=== PATIENT | male | born 1975 | race African-American/Black ===

== ENCOUNTER 2019-09-14 22:04 | Emergency (ER) | payer SELFPAY ==
[~2019-09-14] VITALS: Ht 185.4 cm; Wt 114.0 kg
--- NOTE | 2019-09-14 22:31 | PHYS DOC ---
General Adult EDM: Chief Complaint: NEAR SYNCOPE HPI: HPI: Patient is a 44 year old male who presents with complaint of near syncopal event. Patient indicates that he was at work and had gone to the bathroom when he became lightheaded and felt like he was going to pass out. Patient denies having any chest pain. He denies any nausea or vomiting. He does indicate that he did have one episode of vomiting 2 days ago but nothing today. He denies any fever. [] Review of Systems: Review of Systems: Constitutional: Denies fever or chills. [] HENT: Denies nasal congestion or sore throat. [] Respiratory: Denies cough or shortness of breath. [] Cardiovascular: Denies chest pain or edema. [] GI: Denies abdominal pain, nausea, vomiting or diarrhea. [] Neurologic: Denies headache, focal weakness or sensory changes. [] A full 10 point review of systems has been reviewed and is otherwise negative. Heart Score: Risk Factors: Risk Factors: DM, Current or recent (<one month) smoker, HTN, HLP, family history of CAD, obesity. Risk Scores: Score 0 - 3: 2.5% MACE over next 6 weeks - Discharge Home Score 4 - 6: 20.3% MACE over next 6 weeks - Admit for Clinical Observation Score 7 - 10: 72.7% MACE over next 6 weeks - Early Invasive Strategies Current Medications: Current Medications Medications (Trade) Dose Ordered Sig/Italo Start Time Stop Time Status Last Admin Dose Admin Sodium Chloride 1,000 ml @ 1,000 mls/hr 1X ONCE 09/14/19 22:30 09/14/19 23:29 UNV Physical Exam: PE: Constitutional: Well developed, well nourished, no acute distress, non-toxic appearance. [] HENT: Normocephalic, atraumatic, bilateral external ears normal, oropharynx moist, no oral exudates, nose normal. [] Eyes: PERRLA, EOMI, conjunctiva normal, no discharge. [] Neck: Normal range of motion, no tenderness, supple, no stridor. [] Cardiovascular: Regular rate and rhythm [] Lungs & Thorax: Bilateral breath sounds clear to auscultation [] Abdomen: Bowel sounds normal, soft, no tenderness. [] Skin: Warm, dry, no erythema, no rash. [] Extremities: No tenderness, no cyanosis, no clubbing, ROM intact. [] Neurologic: Alert and oriented X 3, no focal deficits noted. [] EKG: EKG: [] Radiology/Procedures: Radiology/Procedures: [] Course & Med Decision Making: Course & Med Decision Making Pertinent Labs and Imaging studies reviewed. (See chart for details) [] Dragon Disclaimer: Dragon Disclaimer: This electronic medical record was generated, in whole or in part, using a voice recognition dictation system. Departure Departure Impression: Primary Impression: Near syncope Disposition: 01 HOME, SELF-CARE Condition: STABLE Patient Instructions: Form - Return To Work, Near-Syncope SUSAN CARRASQUILLO Jr. DO September 14, 2019 22:31
[2019-09-14 23:00] LABS: BASO % 1 % (0-3); EOS # 0.1 x10^3/uL (0.0-0.7); EOS % 2 % (0-3); HEMATOCRIT 44.4 % (39.0-53.0); HEMOGLOBIN 15.3 g/dL (13.0-17.5); LYMPH # 2.3 x10^3/uL (1.0-4.8); LYMPH % 30 % (24-48); MEAN CORPUSCULAR HEMOGLOBIN 35 pg (25-35); MEAN CORPUSCULAR HGB CONC 34 g/dL (31-37); MEAN CORPUSCULAR VOLUME 102 fL (79-100); MONO # 0.7 x10^3/uL (0.0-1.1); MONO % 9 % (0-9); NEUT # 4.4 x10^3/uL (1.8-7.7); NEUT % 58 % (31-73); PLATELET COUNT 340 x10^3/uL (140-400); RED BLOOD COUNT 4.35 x10^6/uL (4.30-5.70); RED CELL DISTRIBUTION WIDTH 17.1 % (11.5-14.5); WHITE BLOOD COUNT 7.6 x10^3/uL (4.0-11.0)
[2019-09-14] MEDS ORDERED: IV NORMAL SALINE 1000ML BAG 1,000 ML IV ONE (23:00)
[2019-09-14 23:09] LABS: CALCIUM 8.6 mg/dL (8.5-10.1); GFR 97.3; POTASSIUM 3.8 mmol/L (3.5-5.1)
[2019-09-14 23:12] VITALS: BP 133/83
[2019-09-14 23:14] LABS: ALBUMIN 3.8 g/dL (3.4-5.0); ALBUMIN/GLOBULIN RATIO 0.9 (1.0-1.7); MAGNESIUM 2.1 mg/dL (1.8-2.4); TOTAL BILIRUBIN 0.1 mg/dL (0.2-1.0); TOTAL PROTEIN 8.1 g/dL (6.4-8.2)
--- NOTE | 2019-09-15 06:41 | EKG ---
[facility] [address] [place] [address] Test Date: 2019-09-14 Test Time: 22:40:44 Pat Name: ARTEMIO COLE Department: Room: Gender: M Social Services Coordinator: : 1975 Requested By: SUSAN CARRASQUILLO Order Number: [id number] Reading MD: Mikey Packer Measurements Intervals [place] Rate: 82 P: 46 AR: 174 QRS: 12 QRSD: 76 T: 27 QT: 348 QTc: 409 Interpretive Statements SINUS RHYTHM NORMAL ECG RI6.01 No previous ECG available for comparison Electronically Signed On 09-15-2019 8:02:35 CDT by Mikey Packer
== END 2019-09-14 23:37 | disposition home or self-care (01) ==
LOC: ER 22:04
DX: R55 Syncope and collapse (principal); R42 Dizziness and giddiness; R11.10 Vomiting, unspecified
CPT/HCPCS: 36415; 80053; 83735; 85025; 93005; 96360; 99284; J7030

== ENCOUNTER → 2019-10-26 | Emergency (ER) | payer SELFPAY | LOC: ER 15:15 | DX: M79.601 Pain in right arm (principal); Z53.21 Procedure and treatment not carried out due to patient leaving prior to being seen by health care provider ==

== ENCOUNTER 2020-02-22 21:16 | Emergency (ER) | payer SELFPAY ==
[~2020-02-22] VITALS: Ht 185.4 cm; Wt 114.6 kg
--- NOTE | 2020-02-22 21:54 | PHYS DOC ---
Past Medical History Past Medical History: No Pertinent History Past Surgical History: No Surgical History Smoking Status: Current Every Day Smoker Alcohol Use: None General Adult EDM: Chief Complaint: THUMB HPI: HPI: Patient is a 44 year old male who is currently on no medications presents with a chief complaint of left thumb pain. Patient states he has had pain and swelling over the last 1 week has increased. Patient denies any known injuries. He states on he noticed a white fluctuant area on the palmar surface over the MCP. States he used a nail clipper and attmpted a self I/D with a little amount of fluid drainage. On exam patient has swelling primarily over his left Distal and Proximal Ph alanx. There is also Mild swelling along thenar eminence. Patient states discomfort from thumb radiated to his proximal forearm. There is pain with passive ROM of left thumb. No history of fever or chills. Patient is right hand dominant. Review of Systems: Review of Systems: Constitutional: Denies fever or chills. [] Eyes: Denies change in visual acuity. [] HENT: Denies nasal congestion or sore throat. [] Respiratory: Denies cough or shortness of breath. [] Cardiovascular: Denies chest pain or edema. [] GI: Denies abdominal pain, nausea, vomiting, bloody stools or diarrhea. [] : Denies dysuria. [] Musculoskeletal: Denies back pain or joint pain. [positive thumb pain positive hand pain] Integument: Denies rash. [] Neurologic: Denies headache, focal weakness or sensory changes. [] Endocrine: Denies polyuria or polydipsia. [] Lymphatic: Denies swollen glands. [] Psychiatric: Denies depression or anxiety. [] Heart Score: Risk Factors: Risk Factors: DM, Current or recent (<one month) smoker, HTN, HLP, family history of CAD, obesity. Risk Scores: Score 0 - 3: 2.5% MACE over next 6 weeks - Discharge Home Score 4 - 6: 20.3% MACE over next 6 weeks - Admit for Clinical Observation Score 7 - 10: 72.7% MACE over next 6 weeks - Early Invasive Strategies Allergies: Allergies: Allergies Coded Allergies Type Severity Reaction Last Updated Verified No Known Drug Allergies 09/14/19 No Physical Exam: PE: Constitutional: Well developed, well nourished, no acute distress, non-toxic appearance. [] HENT: Normocephalic, atraumatic, bilateral external ears normal, oropharynx moist, no oral exudates, nose normal. [] Eyes: PERRLA, EOMI, conjunctiva normal, no discharge. [] Neck: Normal range of motion, no tenderness, supple, no stridor. [] Cardiovascular:Heart rate regular rhythm, no murmur [] Lungs & Thorax: Bilateral breath sounds clear to auscultation [] Abdomen: Bowel sounds normal, soft, no tenderness, no masses, no pulsatile masses. [] Skin: Warm, dry, no erythema, no rash. [] Back: No tenderness, no CVA tenderness. [] Extremities: No tenderness, no cyanosis, no clubbing, ROM intact, no edema. [] Neurologic: Alert and oriented X 3, normal motor function, normal sensory function, no focal deficits noted. [] Psychologic: Affect normal, judgement normal, mood normal. [] Left hand-- Swelling over left thumb-- primarily prox and distal phalanx. Pain with flextion of right thumb, Tenderness along flexor surface of the thumb, Swelling along thenar eminence, Thumb is NVI, CR<2 seconds. Current Patient Data: Vital Signs: Vital Signs Date Time Temp Pulse Resp B/P (MAP) Pulse Ox O2 Delivery O2 Flow Rate FiO2 02/22/20 21:20 97.9 98 16 173/94 (120) 100 Room Air 97.9 EKG: EKG: [] Radiology/Procedures: Radiology/Procedures: [] Impression: NDICATION: Reason: thumb left / Spl. Instructions: / History: COMPARISON: None. IMPRESSION: Left first digit of hand: 3 views obtained. Small ossific density is seen adjacent to the interphalangeal joint which has a chronic appearance. No acute fracture or dislocation is seen. Electronically signed by: Prabhjot Alford MD (02/22/2020 11:22 PM) [id number] Course & Med Decision Making: Course & Med Decision Making Pertinent Labs and Imaging studies reviewed. (See chart for details) [] Procedure-- Digital block left thumb. INjuection site was cleaned with alcohol wipe Approx 10cc total lidocaine 1% used for digital block Once successful anesthesia was achieved area with draped with sterile towels and cleaned with Betadine. overlying PIP on raygoza surface area of white pus fluid visualized- 11 blade used to make a 1cm laceration over fluctuant area. Blood and pus expressed. Area was probed and 10cc NS flushed into into incision. Incision left open. Dressed with 4x4 Patient tolerated procedure. Treatment/work up Xray was ordered and not FB identified. CBC/cmp obtainted. I/D Treatment with Zosyn and Vancomycin. I did not feel comfortable extending my incision longer or cutting deeper into patients thumb. Fluid collections feels deeper. My clinical concern is flexor tenosynovitis. No hand surgeon or plastic surgery available at [facility]. I discussed patient with orthopedics convention planner Dr Rodriguez--- He states he does not operate on hands requested patient be transferred to facility that has hand surgeon. I discussed with patient transfer to another facility-- Recommended [facility] and [facility]. Patient states he lives next to [facility] and would like to be treated there. Discussed patient with Dina at [facility] transfer line. She states [facility] is on high volume and no beds available-- likely that patient would not be able to be accepted at [facility] until unknown time tomorrow. Advised my clinical concern for flexor tenosynovitis-- and it was my impression that they are usually surgical emergencies. I was recommended to seek another accepting facility. I discussed with patient the possibility of another facility --- patient again pefers [facility]. Dina from [facility]-- Discussed patient with Dr Borges. I was advised that could be admitted to hospitalist here at [place] and that most cases are not surgical. Due to the lack of hand or plastics surgery I do not feel it is appropriate to admit patient here at [facility] to the hospitalist without surgical support. I was advised that patient could be trasnfered to [facility] ER for evaluation. Was advised by [facility] transfer team that the Accepting docot is Dr Borges--- (I did not speak to him directly). Discussed transfer to [facility] ER with patient-- he advises that he would like to go by private vehicle and declining ambulance transfer. Patient discharged/transfer to [facility] ER. Yessica Disclaimer: Yessica Disclaimer: This electronic medical record was generated, in whole or in part, using a voice recognition dictation system. Departure Departure Impression: Primary Impression: Thumb pain Additional Impressions: Abscess of thumb Flexor tenosynovitis of thumb Disposition: 02 DC/TRF OTHER SHORT TERM HOS ([facility] ER) Condition: STABLE Referrals: NO PCP (PCP) Patient Instructions: Abscess Additional Instructions: CLINICAL CONCERN for Flexor Tenosynovitis of Left THUMB Patient to be transfered to [facility] Patient advised to be transfered to ER Patient declining EMS Transfer and wants to go POV. KATIE GRACIA I DO Feb 22, 2020 21:54
[2020-02-22] MEDS ORDERED: LIDOCAINE 1% PF 5 ML VIAL. INJ ONE (22:00)
[2020-02-22] MEDS ORDERED: PIP/TAZO PER PHARMACY MC PRN (23:00)
[2020-02-22] MEDS ORDERED: VANCOMYCIN PER PHARMACY MC PRN (23:00)
[2020-02-22 23:07] LABS: BASO % 0 % (0-3); EOS # 0.2 x10^3/uL (0.0-0.7); EOS % 2 % (0-3); HEMATOCRIT 41.1 % (39.0-53.0); HEMOGLOBIN 14.6 g/dL (13.0-17.5); LYMPH # 3.4 x10^3/uL (1.0-4.8); LYMPH % 27 % (24-48); MEAN CORPUSCULAR HEMOGLOBIN 42 pg (25-35); MEAN CORPUSCULAR HGB CONC 36 g/dL (31-37); MEAN CORPUSCULAR VOLUME 117 fL (79-100); MONO # 0.4 x10^3/uL (0.0-1.1); MONO % 3 % (0-9); NEUT # 8.7 x10^3/uL (1.8-7.7); NEUT % 68 % (31-73); PLATELET COUNT 342 x10^3/uL (140-400); RED BLOOD COUNT 3.52 x10^6/uL (4.30-5.70); RED CELL DISTRIBUTION WIDTH 18.3 % (11.5-14.5); WHITE BLOOD COUNT 12.8 x10^3/uL (4.0-11.0)
[2020-02-22] MEDS ORDERED: PIPERACILLIN/TAZOBACTAM 3.375 GM in IV NORMAL SALINE 50ML 50 ML IV ONE (23:15)
[2020-02-22 23:17] LABS: CALCIUM 9.2 mg/dL (8.5-10.1); CREATININE 1.1 mg/dL (0.7-1.3); GFR 87.2
[2020-02-22 23:21] LABS: ANISOCYTOSIS SLIGHT; PLT ESTIMATE ADEQUATE (ADEQUATE); POLYCHROMASIA SLIGHT
[2020-02-22 23:23] LABS: ALBUMIN 4.4 g/dL (3.4-5.0); TOTAL BILIRUBIN 0.3 mg/dL (0.2-1.0); TOTAL PROTEIN 8.7 g/dL (6.4-8.2)
--- NOTE | 2020-02-22 23:24 | RAD ---
INDICATION: Reason: thumb left / Spl. Instructions: / History: COMPARISON: None. IMPRESSION: Left first digit of hand: 3 views obtained. Small ossific density is seen adjacent to the interphalangeal joint which has a chronic appearance. No acute fracture or dislocation is seen. Electronically signed by: Prabhjot Alford MD (02/22/2020 11:22 PM) [id number]
[2020-02-22] MEDS ORDERED: VANCOMYCIN 2 GM in IV NORMAL SALINE 500ML BAG 500 ML IV ONE (23:30)
[2020-02-23 01:00] VITALS: BP 140/82
== END 2020-02-23 01:41 | disposition short-term general hospital (02) ==
LOC: ER 21:16
DX: L02.512 Cutaneous abscess of left hand (principal); M65.842 Other synovitis and tenosynovitis, left hand; F17.200 Nicotine dependence, unspecified, uncomplicated
CPT/HCPCS: 10060; 36415; 73140; 80053; 85025; 96365; 96366; 96368; 99285; J2543; J3370; J3490; J7040

== ENCOUNTER → 2021-05-03 | Outpatient (CLI) | payer OTHER ==
--- NOTE | 2021-05-03 13:01 | RAD ---
2 views lumbar spine without comparison for low back pain. FINDINGS: Mild straightening of the normal lumbar lordosis with no fracture or acute osseous abnormal ity identified. Mild multilevel facet arthrosis in the lower levels particularly. Mild aortic atheros clerosis. Intervertebral disc spaces appear well-preserved. IMPRESSION: 1. No acute osseous or alignment abnormality of lumbar spine. Electronically signed by: Chu Aldrich MD (05/03/2021 12:59 PM) [id number]
== END ==
LOC: RAD 08:40
PROVIDERS: ATTEND Anesthesiology Pain Medicine
DX: Z02.71 Encounter for disability determination (principal); M47.816 Spondylosis without myelopathy or radiculopathy, lumbar region; I70.0 Atherosclerosis of aorta; M40.46 Postural lordosis, lumbar region
CPT/HCPCS: 72100